=== PATIENT | female | born 1980 | race African-American/Black ===

== ENCOUNTER 2020-11-30 13:41 | Emergency (ER) | payer MEDICAID, OTHER ==
[~2020-11-30] VITALS: Ht 167.6 cm; Wt 79.4 kg
[2020-11-30] MEDS ORDERED: ONDANSETRON ODT 4 MG TAB PO ONE (15:30)
[2020-11-30] MEDS ORDERED: KETOROLAC TROMETH 60MG/2ML VIAL IM ONE (15:30)
[2020-11-30 15:52] VITALS: BP 130/88
== END 2020-11-30 16:12 | disposition home or self-care (01) ==
LOC: ER 13:41
DX: G43.909 Migraine, unspecified, not intractable, without status migrainosus (principal); R42 Dizziness and giddiness
CPT/HCPCS: 70450; 96372; 99284; J1885; Q0162

== ENCOUNTER 2021-09-04 08:14 | Emergency (ER) | payer MEDICAID ==
[~2021-09-04] VITALS: Ht 167.6 cm; Wt 77.1 kg
[2021-09-04] MEDS ORDERED: MECLIZINE HCL 25 MG TAB PO ONE (09:00)
[2021-09-04 10:10] LABS: Basophils # (auto) 0 10 ^3/uL (0-0.2); Basophils % (auto) 0.4 % (0.0-2.0); Eosinophils # (auto) 0.1 10 ^3/uL (0-0.8); Eosinophils % (auto) 1.8 % (0.0-7.0); Hematocrit 39.6 % (36.0-46.0); Hemoglobin 13.3 g/dL (12.2-16.2); Lymphocytes # (auto) 2.7 10 ^3/uL (0.4-5.4); Lymphocytes % (auto) 34.9 % (10.0-50.0); Mean Corpuscular Hemoglobin 33.2 pg (28.0-32.0); Mean Corpuscular Hgb Conc. 33.5 g/dL (32.0-36.0); Mean Corpuscular Volume 99.2 fL (80.0-100.0); Monocytes # (auto) 0.4 10 ^3/uL (0-1.3); Monocytes % (auto) 4.6 % (0.0-12.0); Neutrophils # (auto) 4.5 10 ^3/uL (1.6-8.6); Neutrophils % (auto) 58.3 % (37.0-80.0); Nucleated Red Blood Cells % 0.1 %; Red Cell Distribution Width 13.2 % (11.8-14.3); White Blood Cell 7.7 10^3/uL (4.4-10.8)
[2021-09-04 10:22] LABS: Albumin 3.7 g/dL (3.4-5.0); Potassium 3.9 mmol/L (3.5-5.1)
[2021-09-04 10:23] LABS: Urine Bacteria NONE SEEN /hpf (None Seen); Urine Blood Negative /uL (Negative); Urine WBC <1 /hpf (0 - 5)
[2021-09-04 10:25] LABS: BUN/Creatinine Ratio 13.3; Bilirubin, Total 0.3 mg/dL (0.2-1.0); Total Protein 7.6 g/dL (6.4-8.2)
[2021-09-04] MEDS ORDERED: NITR-87 PO (11:30)
[2021-09-04 11:41] VITALS: BP 114/65
== END 2021-09-04 11:51 | disposition home or self-care (01) ==
LOC: ER 08:20
DX: R42 Dizziness and giddiness (principal); R11.2 Nausea with vomiting, unspecified; R10.33 Periumbilical pain
CPT/HCPCS: 36415; 70450; 80053; 81001; 83690; 85025; 99284; J7030; J8597